=== PATIENT | female | born 1965 | race Hispanic/Latino ===

== ENCOUNTER 2024-03-13 00:42 | Emergency (ER) | payer OTHER ==
--- OUTSIDE RECORDS SUMMARY | 2024-03-13 00:47 | XMS REPORT | Continuity of Care Document ---
Author Name Unknown Address [address] [facility] [address] [place] [address] [facility] Address [address] [facility] [address] [place] [address] Care Team Providers Care Admiralty Lawyer Name Role Phone PCP, PATIENT DOES NOT HAVE A Primary Care Physic zeeshan Unavailable BK DREW Attending Clinician Unavailable LAB90 Attending Clinician Unavailable KWAME BALL Attending Clinician Unavailable VIDYA LYLE Attending Clinician Unavailable TONI HANNAH Attending Clinician Unavailable NADJA JAUREGUI Attending Clinician Unava REMY Giron Attending Clinician Unavailable REGAN ROSE Attending Clinician Unavailable ANETTE WALDROP Attending Clinician Unavailab stewart BLOUNT, ELROY Attending Clinician Unavailable EDGAR MACIAS Attending Clinician Unavailable Adriel MITCHELL, Nadja Mcdowell Attending Clinician [phone] BHARGAV ELMORE Attending Clinician UnavailJUANI Cabrales Attending Clinician Unavail able Lab, Adc Fam Pob I Attending Clinician Unavailab Anette Tinoco Attending Clinician [phone] Kitty Friedman Attending Clinician [phone] KITTY KIMBLE Attending Clinician Unavailable Scotty Rendon Attending Clinician + [phone] SCOTTY MARIANO Attending Clinician Unavailab ANETTE Cruz Attending Clinician Unavailable Doctor Unassigned, [place] Attending Clinician U navailable Payers Payer Name Policy Type Policy Number Effective Date Expirati on Date Source WEN 2 [id number] 2020 00:00:00 [employer] [id number] 2018 00:00:00 Problems Condition Name Condition Details Condition Category Status Onset Date Resolution Date Last Treatment Date Treating Clinician Comments Source Diverticul itis of colon with perforatio n Diverticul itis of colon with perforatio n Disease Active 03-10 00:00: 00 Yanet Seybold - Externa l History of kidney stones History of kidney stones Disease Active 2022-02 00:00: 00 Yanet Seybold - Externa l Elevated BP without diagnosis of hypertensi on Elevated BP without diagnosis of hypertensi on Disease Active 2022-02 00:00: 00 Yanet Seybold - Externa l Primary hypertensi on Primary hypertensi on Disease Active 2021-02 00:00: 00 Yanet Seybold - Externa l Non-recurr ent acute suppurativ e otitis media of right ear without spontaneou s rupture of tympanic membrane Non-recurr ent acute suppurativ e otitis media of right ear without spontaneou s rupture of tympanic membrane Disease Active 2021-02 00:00: 00 Yanet Seybold - Externa l Acute pharyngiti s due to other specified organisms Acute pharyngiti s due to other specified organisms Disease Active 2021-02 0- 00:00: 00 Yanet Seybold - Externa l Plantar warts Plantar warts Disease Active 2021-02 0-05 00:00: 00 Yanet Seybold - Externa l Mixed hyperlipid emia Mixed hyperlipid emia Disease Active 2021-02 0- 00:00: 00 Yanet Seybold - Externa l Hyperlipid emia Hyperlipid emia Disease Active 2021-02 0- 00:00: 00 Yanet Seybold - Externa l Prediabete s Prediabete s Disease Active 6- 00:00: 00 Yanet Seybold - Externa l Allergies, Adverse Reactions, Alerts Allergy Name Allergy Type Status Severity Reaction(s) Onset Date Inactive Date Treating Clinician Comments Source Sulfamet hoxazole W-Trimet hoprim Propensi ty to adverse reaction s Active 10-13 00:00: 00 Other Reaction( s): Unknown Yanet Seybold - Externa l Azithrom ycin Propensi ty to adverse reaction s Active Other 10-22 00:00: 00 Stomach cramps Yanet Seybold - Externa l Sulfamet hoxazole -Trimeth oprim Propensi ty to adverse reaction s Active Nausea and Vomiting 10-22 00:00: 00 Yanet Seybold - Externa l Bacampic illin Propensi ty to adverse reaction s Active Rash 06-09 00:00: 00 Yanet Seybold - Externa l Acetamin ophen Propensi ty to adverse reaction s Active 1998-02 00:00: 00 Yanet Seybold - Externa l Hydrocod one Propensi ty to adverse reaction s Active 1998-02 00:00: 00 Yanet Seybold - Externa l Metoclop ramide Propensi ty to adverse reaction s Active 1998-02 00:00: 00 Ynaet Seybold - Externa l Acetamin ophen Propensi ty to adverse reaction s Active 1998-02 00:00: 00 Yanet Seybold - Externa l Acetamin ophen Injectio n Propensi ty to adverse reaction s Active 1998-02 00:00: 00 Yanet Seybold - Externa l Metoclop ramide Propensi ty to adverse reaction s Active 1998-02 00:00: 00 Yanet Seybold - Externa l hydrocod one DA Active U 1998-02 00:00: 00 [facility] acetamin ophen DA Active U 1998-02 00:00: 00 [facility] metoclop ramide DA Active U 1998-02 00:00: 00 [facility] Not Converte d 316. See Text. DA Active U 1998-02 00:00: 00 [facility] NO KNOWN ALLERGIE S Drug Class Active [facility] Social History Social Habit Start Date Stop Date Quantity Comments Source ASSERTION Not Yanet Acosta - External Gender identity Nelsy bunn Dave - External Sexual orientation Bertha barragan Dave - External Exposure to SARS-CoV-2 (event) Not sure [facility] Alcoholic beverage intake 2024-03-10 00:00:00 2024-03-10 00:00:00 Ex-drinker (finding) Yanet Acosta - External Tobacco use and exposure 2024-01-19 00:00:00 2024-01-19 00:00:00 Smokeless tobacco non-user Yanet Acosta - External History of Social function 2022-10-07 00:00:00 2022-10-07 00:00:00 Yanet Acosta - External Sex 2020-05-16 17:06:18 2020-05-16 17:06:18 Female (finding) Yanet Acosta - External Sex assigned at 1965 00:00:00 1965 00:00:00 Yanet Acosta - External Smoking Status Start Date Stop Date Source Unknown if ever smoked [facility] Never smoked tobacco Yanet Acosta - External Medications Ordered Medication Name Filled Medication Name Start Date Stop Date Current Medication? Ordering Clinician Indication Dosage Frequency Signature (SIG) Comments Components Source Triamcinolo ne Acetonide 0.1 % apply externally Cream 03-10 00:00: 00 04-08 05:59 :00 Yes [id number] Apply to rash BID. Yanet rowland Terbinafine HCl 250 MG oral Tablet 03-02 00:00: 00 04-02 05:59 :00 Yes [id number] 250mg QD Take 1 tablet (250 mg total) by mouth daily. Yanet rowland Amoxicillin -Pot Clavulanate 875-125 MG oral Tablet 2023-02- 00:00: 00 Yes [id number] 1{tbl} Q.5D Take 1 tablet by mouth 2 times daily. Yanet rowland Multiple Vitamin (MULTI VITAMIN DAILY OR) 2023-02 2 10:20: 10 Yes , Yanet rowland Multiple Vitamin (MULTI VITAMIN DAILY OR) 2023-02 2 10:55: 09 Yes , Yanet rowlnad Ofloxacin 0.3 % otic Solution 2023-02 00:00: 00 Yes [id number] 3[drp] Q.5D Place 3 drops into the right ear 2 times daily. Yanet rowland Neomycin-Po lymyxin-Dex ameth 3.5-03082-9 .1 ophthalmic Suspension 2023-02- 00:00: 00 Yes Yanet rowland Mupirocin (BACTROBAN) 2 % apply externally Ointment 11-05 00:00: 00 01-18 00:00 :00 No [id number] 1{appli cation} Q.5D Apply 1 Applicatio n topically 2 times daily as needed. Yanet rowland Multiple Vitamin (MULTI VITAMIN DAILY OR) 10-13 13:58: 30 Yes , Yanet rowland LISINOPRIL- HCTZ 10-12.5 MG oral Tablet 10-13 00:00: 00 Yes [id number] 1{tbl} QD Take 1 tablet by mouth daily. Yanet rowland Ofloxacin 0.3 % otic Solution 10-13 00:00: 00 01-18 00:00 :00 No [id number] 14355 3[drp] Q.5D Place 3 drops into the right ear 2 times daily. Yanet rowland Cefdinir 300 MG oral Capsule 06-18 00:00: 00 10-13 00:00 :00 No [id number] 300mg Q.5D Take 1 capsule (300 mg total) by mouth 2 times daily. Yanet rowland levoFLOXaci n 500 MG oral Tablet 06-07 00:00: 00 10-13 00:00 :00 No 500mg QD Take 1 tablet (500 mg total) by mouth daily. Yanet rowland Doxycycline Hyclate 100 MG oral Tablet 05-21 00:00: 10-13 00:00 :00 No [id number] 9102 100mg Q.5D Take 1 tablet (100 mg total) by mouth 2 times daily. Yanet rowland Benzonatate (Tessalon Perles) 100 MG oral Capsule 05-14 00:00: 00 10-13 00:00 :00 No [id number] 100mg [id number] 3D Take 1 capsule (100 mg total) by mouth 3 times daily as needed for cough. Yanet rowland guaiFENesin -Codeine 100-10 MG/5ML oral Syrup 05-14 00:00: 00 10-13 00:00 :00 No [id number] 5mL Q4H Take 5 mL by mouth every 4 to 6 hours as needed for cough. Yanet rowland Terbinafine HCl 250 MG oral Tablet 05-05 00:00: 00 05-21 00:00 :00 No [id number] 250mg Take 1 tablet (250 mg total) by mouth daily. Yanet rowland LISINOPRIL- HCTZ 10-12.5 MG oral Tablet 2-12 00:00: 00 10-13 00:00 :00 No [id number] 1{tbl} QD Take 1 tablet by mouth daily. Yanet rowland Ofloxacin 0.3 % otic Solution 03-12 00:00: 00 Yes [id number] 5[drp] Place 5 drops into the right ear 2 times daily. Yanet rowland Amoxicillin -Pot Clavulanate 875-125 MG oral Tablet -24 00:00: 00 Yes [id number] 1{tbl} Take 1 tablet by mouth 2 times daily. Yanet rowland LISINOPRIL- HCTZ 10-12.5 MG oral Tablet 2022-02 10:19: 37 01-15 00:00 :00 No 1{tbl} Take 1 tablet by mouth daily. Yanet rowland LISINOPRIL- HCTZ 10-12.5 MG oral Tablet 2022-02 00:00: 00 Yes [id number] 1{tbl} Take 1 tablet by mouth daily. Yanet rowland Albuterol HFA 108 (90 Base) MCG/ACT IN AERS 2022-02 00:00: 00 05-21 00:00 :00 No [id number] 2{puff} Q.25D Inhale 2 puffs into the lungs every 6 hours as needed for wheezing. Yanet rowland Semaglutide -Weight Management (Wegovy) 0.25 MG/0.5ML subcutaneou s Solution Auto-inject or 2022-02 00:00: 00 Yes [id number] .25mg Inject 0.25 mg into the skin once a week. Yanet rowland Nitrofurant oin Monohyd Macro (Macrobid) 100 MG oral Capsule 10-21 00:00: 00 01-03 00:00 :00 No [id number] 100mg Take 1 capsule (100 mg total) by mouth 2 times daily. Yanet rowland Terbinafine HCl 250 MG oral Tablet 09-10 00:00: 00 10-07 00:00 :00 No [id number] 250mg Take 1 tablet (250 mg total) by mouth daily Yanet rowland Amoxicillin -Pot Clavulanate 875-125 MG oral Tablet 08-13 00:00: 00 10-06 00:00 :00 No [id number] 1{tbl} Take 1 tablet by mouth 2 times daily for 7 days Yanet rowland Ofloxacin 0.3 % otic Solution 08-13 00:00: 00 08-21 04:59 :00 No [id number] 5[drp] Place 5 drops into the right ear 2 times daily for 7 days Yanet rowland Cefdinir 300 MG oral Capsule 2021-02 00:00: 00 10-06 00:00 :00 No [id number] 300mg Take 1 capsule (300 mg total) by mouth 2 times daily Yaent rowland Amoxicillin -Pot Clavulanate 875-125 MG oral Tablet 2021-02 0-05 00:00: 00 Yes [id number] 1{tbl} Take 1 tablet by mouth 2 times daily Yanet rowland Ciprofloxac in-Dexameth asone 0.3-0.1 % otic Suspension 08-07 00:00: 00 Yes [id number] 3[drp] Place 3 drops into the right ear in the morning and 3 drops in the evening. Yanet rowland Alprazolam 0.5 MG oral Tablet 08-07 00:00: 00 Yes [id number] .5mg [id number] 3D Take 1 tablet (0.5 mg total) by mouth 3 times daily as needed for sleep or anxiety Yanet rowland Cefdinir 300 MG oral Capsule 08-07 00:00: 00 11-21 00:00 :00 No [id number] 300mg Take 1 capsule (300 mg total) by mouth in the morning and 1 capsule (300 mg total) in the evening. Yanet rowland LISINOPRIL- HCTZ 10-12.5 MG oral Tablet 8 00:00: 00 Yes [id number] 1{tbl} Take 1 tablet by mouth daily Yanet rowland Ketorolac Tromethamin e 10 MG oral Tablet - 00:00: 00 Yes Yanet rowland Fluconazole 150 MG oral Tablet 7- 00:00: 00 09-10 00:00 :00 No Yanet rowland Imiquimod 5 % apply externally Cream 5- 00:00: 00 10-07 00:00 :00 No [id number] Apply at night 3 times per week Yanet rowland Immunizations Ordered Immunization Name Filled Immunization Name Date Status Comments Source Tdap- (Boostrix, Adacel) Unknown Completed Yanet Traore External Tdap- (Boostrix, Adacel) Unknown Completed Yanet Seybold - External Tdap- (Boostrix, Adacel) Unknown Completed Yanet Seybold - External Tdap- (Boostrix, Adacel) Unknown Completed Yanet Seybold - External Tdap- (Boostrix, Adacel) Unknown Completed Yanet Seybold - External Vital Signs Vital Name Observation Time Observation Value Comments S deanna Systolic blood pressure 2024-01-19 16:52:00 138 mm[Hg] Yanet Seybo ld - External Diastolic blood pressure 2024-01-19 16:52:00 70 mm[Hg] Yanet Seybo ld - External Heart rate 2024-01-19 16:52:00 82 /min Kelse y Seybold - External Body temperature 2024-01-19 16:52:00 36.78 Karen Yanet Seybold - External Respiratory rate 2024-01-19 16:52:00 14 /min Yanet Seybold - External Body height 2024-01-19 16:52:00 154.9 cm Nelsy ey Seybold - External Body weight 2024-01-19 16:52:00 61.145 kg Nelsy ey Seybold - External BMI 2024-01-19 16:52:00 25.47 kg/m2 Nelsy ey Seybold - External Systolic blood pressure 2023-10-14 18:54:00 110 mm[Hg] Yanet Seybo ld - External Diastolic blood pressure 2023-10-14 18:54:00 58 mm[Hg] Yanet Seybo ld - External Heart rate 2023-10-14 18:54:00 69 /min Kelse y Seybold - External Body temperature 2023-10-14 18:54:00 36.06 Karen Yanet Seybold - External Respiratory rate 2023-10-14 18:54:00 15 /min Yanet Seybold - External Body height 2023-10-14 18:54:00 154.9 cm Nelsy ey Seybold - External Body weight 2023-10-14 18:54:00 62.596 kg Nelsy ey Seybold - External BMI 2023-10-14 18:54:00 26.07 kg/m2 Nelsy ey Seybold - External Systolic blood pressure 2023-01-15 15:59:00 130 mm[Hg] Yanet Seybo ld - External Diastolic blood pressure 2023-01-15 15:59:00 64 mm[Hg] Yanet Seybo ld - External Heart rate 2023-01-15 15:59:00 74 /min Kelse y Seybold - External Body temperature 2023-01-15 15:59:00 36.17 Karen Yanet Seybold - External Respiratory rate 2023-01-15 15:59:00 14 /min Yanet Seybold - External Body height 2023-01-15 15:59:00 154.9 cm Nelsy ey Seybold - External Body weight 2023-01-15 15:59:00 59.875 kg Nelsy ey Seybold - External BMI 2023-01-15 15:59:00 24.94 kg/m2 Nelsy ey Seybold - External Systolic blood pressure 2023-01-03 14:05:00 156 mm[Hg] Yanet Seybo ld - External Diastolic blood pressure 2023-01-03 14:05:00 74 mm[Hg] Yanet Seybo ld - External Heart rate 2023-01-03 14:05:00 73 /min Kelse y Seybold - External Body temperature 2023-01-03 14:05:00 36.94 Karen Yanet Seybold - External Respiratory rate 2023-01-03 14:05:00 16 /min Yanet Seybold - External Body height 2023-01-03 14:05:00 154.9 cm Nelsy ey Seybold - External Body weight 2023-01-03 14:05:00 61.689 kg Nelsy ey Seybold - External BMI 2023-01-03 14:05:00 25.70 kg/m2 Nelsy ey Seybold - External Oxygen saturation in Arterial blood by Pulse oximetry 2023-01-03 14:05:00 97 /min Yanet Seybo ld - External Systolic blood pressure 2022-10-07 13:04:00 130 mm[Hg] Yanet Seybo ld - External Diastolic blood pressure 2022-10-07 13:04:00 74 mm[Hg] Yanet Seybo ld - External Heart rate 2022-10-07 13:04:00 72 /min Kelse y Seybold - External Body temperature 2022-10-07 13:04:00 36.17 Karen Yanet Seybold - External Respiratory rate 2022-10-07 13:04:00 16 /min Yanet Seybold - External Body height 2022-10-07 13:04:00 154.9 cm Nelsy ey Seybold - External Body weight 2022-10-07 13:04:00 61.689 kg Nelsy ey Seybold - External BMI 2022-10-07 13:04:00 25.70 kg/m2 Nelsy ey Seybold - External Oxygen saturation in Arterial blood by Pulse oximetry 2022-10-07 13:04:00 97 /min Yanet Seybo ld - External Body height 2022-09-10 19:51:00 154.9 cm Nelsy ey Seybold - External Body weight 2022-09-10 19:51:00 62.143 kg Nelsy ey Seybold - External BMI 2022-09-10 19:51:00 25.89 kg/m2 Nelsy ey Seybold - External Oxygen saturation in Arterial blood by Pulse oximetry 2022-09-10 19:51:00 94 /min Yanet Seybo ld - External Systolic blood pressure 2022-09-10 19:51:00 126 mm[Hg] Yanet Seybo ld - External Diastolic blood pressure 2022-09-10 19:51:00 60 mm[Hg] Yanet Seybo ld - External Heart rate 2022-09-10 19:51:00 67 /min Kelse y Seybold - External Body temperature 2022-09-10 19:51:00 36.61 Karen Yanet Seybold - External Respiratory rate 2022-09-10 19:51:00 16 /min Yanet Seybold - External Systolic blood pressure 2022-01-11 21:16:00 134 mm[Hg] Yanet Seybo ld - External Diastolic blood pressure 2022-01-11 21:16:00 76 mm[Hg] Yanet Seybo ld - External Heart rate 2022-01-11 21:16:00 77 /min Kelse y Seybold - External Body temperature 2022-01-11 21:16:00 36.56 Karen Yanet Seybold - External Respiratory rate 2022-01-11 21:16:00 14 /min Yanet Seybold - External Body height 2022-01-11 21:16:00 154.9 cm Nelsy ey Seybold - External Body weight 2022-01-11 21:16:00 62.596 kg Nelsy ey Seybold - External BMI 2022-01-11 21:16:00 26.07 kg/m2 Nelsy ey Seybold - External Oxygen saturation in Arterial blood by Pulse oximetry 2022-01-11 21:16:00 99 /min Yanet Seybo ld - External Systolic blood pressure 2021-11-21 14:12:00 130 mm[Hg] Yanet Seybo ld - External Diastolic blood pressure 2021-11-21 14:12:00 72 mm[Hg] Yanet Velozybo ld - External Heart rate 2021-11-21 14:12:00 70 /min Sanjuana y Seybold - External Body temperature 2021-11-21 14:12:00 36.67 Karen Yanet Seybold - External Respiratory rate 2021-11-21 14:12:00 14 /min Yanet Seybold - External Body height 2021-11-21 14:12:00 154.9 cm Nelsy ey Seybold - External Body weight 2021-11-21 14:12:00 62.143 kg Nelsy ey Seybold - External BMI 2021-11-21 14:12:00 25.89 kg/m2 Nelsy ey Seybold - External Encounters Start Date/Time End Date/Time Encounter Type Admission Type Attending [facility] Care Department Encounter ID Source 2024-03-10 09:00:00 2024-03-10 09:00:00 Outpatient BK DREW [id number] Yanet Acosta 2024-03-05 00:00:00 2024-03-05 00:00:00 Outpatient BK DREW [id number] Yanet Acosta 2024-03-02 00:00:00 2024-03-02 00:00:00 Outpatient BK DREW [id number] Yanet Acosta 2024-02-03 00:00:00 2024-02-03 00:00:00 Outpatient BK DREW [id number] Yanet Acosta 2024-01-29 08:15:00 2024-01-29 08:15:00 Outpatient LAB90 YANET SOSA [id number] Yanet Seybold 2024-01-28 00:00:00 2024-01-28 00:00:00 Outpatient BK DREW YANET SOSA [id number] Yanet Seybold 2024-01-23 09:35:00 2024-01-23 09:35:00 Outpatient LAB90 YANET SOSA [id number] Yanet Seybold 2024-01-22 00:00:00 2024-01-22 00:00:00 Outpatient HUNDTrevor, BK YANET SOSA [id number] Yanet Seybold 2024-01-19 11:45:00 2024-01-19 11:45:00 Outpatient LAB90 YANET SOSA [id number] Yanet Seybold 2024-01-19 11:00:00 2024-01-19 11:00:00 Outpatient HUNDTrevor, BK SOSA [id number] Yanet Seybold 2024-01-07 19:45:00 2024-01-07 19:45:00 Outpatient LIZZYKWAME HENDERSON YANET SOSA [id number] Yanet Seybold 2023-11-26 08:00:00 2023-11-26 08:00:00 Outpatient VIKI, BK YANET SOSA [id number] Yanet Seybold 2023-11-21 09:00:00 2023-11-21 09:00:00 Outpatient VIKI BK SOSA [id number] Yanet Seybold 2023-11-06 19:00:00 2023-11-06 19:00:00 Outpatient LYLEVIDYA BYRNES YANET SOSA [id number] Yanet Seybold 2023-11-04 00:00:00 2023-11-04 00:00:00 Outpatient VIKI BK SOSA [id number] Yanet Seybold 2023-10-22 00:00:00 2023-10-22 00:00:00 Outpatient VIKI BK SOSA [id number] Yanet Seybold 2023-10-14 14:45:00 2023-10-14 14:45:00 Outpatient LAB90 YANET SOSA [id number] Yanet Seybold 2023-10-14 14:00:00 2023-10-14 14:00:00 Outpatient BK DREW YANET [id number] Yanet Seybold 2023-09-12 14:55:00 2023-09-12 14:55:00 Outpatient LAB90 YANET YANET [id number] Yanet Seybold 2023-09-12 00:00:00 2023-09-12 00:00:00 Outpatient BK DREW YANET [id number] Yanet Seybold 2023-09-11 00:00:00 2023-09-11 00:00:00 Outpatient BK DREW [facility]ANTE SOSA [id number] [facility] 2023-08-27 00:00:00 2023-08-27 00:00:00 Outpatient PRETONI CRUZ YANET SOSA [id number] Yanet Seybold 2023-06-19 00:00:00 2023-06-19 00:00:00 Outpatient TONI HANNAH YANET SOSA [id number] Yanet Seybold 2023-06-13 14:55:00 2023-06-13 14:55:00 Outpatient LABRenee YANET SOSA [id number] Yanet Seybold 2023-06-13 00:00:00 2023-06-13 00:00:00 Outpatient NADJA JAUREGUI [id number] Yanet Seybold 2023-06-13 00:00:00 2023-06-13 00:00:00 Outpatient TONI HANNAH YANET SOSA [id number] Yanet Seybold 2023-05-23 16:30:00 2023-05-23 16:30:00 Outpatient TONI HANNAH YANET SOSA [id number] Yanet Seybold 2023-05-22 15:15:00 2023-05-22 15:15:00 Outpatient REMY WADDELL [id number] Yanet Seybold 2023-05-22 00:00:00 2023-05-22 00:00:00 Outpatient NADJA JAUREGUI [id number] Yanet Seybold 2023-05-15 00:00:00 2023-05-15 00:00:00 Outpatient HUNDTrevor, BK YANET SOSA [id number] Yanet Seybold 2023-05-06 00:00:00 2023-05-06 00:00:00 Outpatient HUNDL, BK SOSA [id number] Yanet Seybshoaib 2023-05-05 09:10:00 2023-05-05 09:10:00 Outpatient LAB90 YANET SOSA [id number] Yanet Seybold 2023-04-14 00:00:00 2023-04-14 00:00:00 Outpatient HUNDTrevor, BK YANET SOSA [id number] Yanet Seybshoaib 2023-03-31 00:00:00 2023-03-31 00:00:00 Outpatient HUNDL, BK SOSA [id number] [facility] 2023-03-12 17:15:00 2023-03-12 17:15:00 Outpatient REGAN ROSE YANET SOSA [id number] [facility] 2023-01-31 13:30:00 2023-01-31 13:30:00 Outpatient HUNDL, BK YANET SOSA [id number] Yanet Seybold 2023-01-21 00:00:00 2023-01-21 00:00:00 Outpatient HUNDL, BK SOSA [id number] Yanet Seybold 2023-01-15 10:45:00 2023-01-15 10:45:00 Outpatient LAB90 YANET SOSA [id number] Yanet Seybold 2023-01-15 10:00:00 2023-01-15 10:00:00 Outpatient HUNDL, BK YANET SOSA [id number] Aynet Seybold 2023-01-06 00:00:00 2023-01-06 00:00:00 Outpatient NADJA JAUREGUI [id number] Yanet Seybold 2023-01-04 00:00:00 2023-01-04 00:00:00 Outpatient HUNDL, BK SOSA [id number] Yanet Seybold 2023-01-03 08:45:00 2023-01-03 08:45:00 Outpatient LAB90 YANET SOSA [id number] Yanet Seybold 2023-01-03 08:00:00 2023-01-03 08:00:00 Outpatient HUNDL, BK SOSA [id number] Yanet Seybold 2023-01-03 00:00:00 2023-01-03 00:00:00 Outpatient HUNDL, BK SOSA [id number] Yanet Seybold 2023-01-02 00:00:00 2023-01-02 00:00:00 Outpatient HUNDL, BK SOSA [id number] Yanet Seybold 2022-12-31 00:00:00 2022-12-31 00:00:00 Outpatient HUNDTrevor, BK SOSA [id number] Yanet Seybold 2022-12-27 00:00:00 2022-12-27 00:00:00 Outpatient ANETTE WALDROP [id number] Yanet Seybold 2022-12-26 16:00:00 2022-12-26 16:00:00 Outpatient LAB90 YANET SOSA [id number] Yanet Seybold 2022-12-26 00:00:00 2022-12-26 00:00:00 Outpatient NADJA JAUREGUI [id number] Yanet Seybold 2022-12-05 10:00:00 2022-12-05 10:00:00 Outpatient JOSE ALEJANDRO, ELROYTHOMAS SOSA [id number] Yanet Seybold 2022-10-18 00:00:00 2022-10-18 00:00:00 Outpatient NADAJ JAUREGUI [id number] Yanet Seybold 2022-10-11 00:00:00 2022-10-11 00:00:00 Outpatient VIKI, BK SOSA [id number] Yanet Seybold 2022-10-07 08:45:00 2022-10-07 08:45:00 Outpatient LAB90 YANET OSSA [id number] Yanet Seybold 2022-10-07 08:00:00 2022-10-07 08:00:00 Outpatient BK DREW YANET [id number] Yanet Acosta 2022-10-04 08:20:00 2022-10-04 08:20:00 Outpatient TOÑO SOSA YANET [id number] Yanet Acosta 2022-09-10 15:00:00 2022-09-10 15:00:00 Outpatient BK DREW YANET SOSA [id number] Yanet Acosta 2022-08-13 07:30:00 2022-08-13 07:30:00 Outpatient EDGAR MACIAS YANET YANET [id number] Yanet Acosta 2022-03-25 00:00:00 2022-03-25 00:00:00 Outpatient BK DREW YANET SOSA [id number] Yanet Acosta 2022-02-21 00:00:00 2022-02-21 00:00:00 Outpatient BK DREW YANET SOSA [id number] [facility] 2022-01-11 15:00:00 2022-01-11 15:00:00 Outpatient VIKI, BK YANET SOSA [id number] Yanet Acosta 2021-11-21 09:15:00 2021-11-21 09:15:00 Outpatient TONI HANNAH YANET SOSA [id number] [facility] 2021-10-30 00:00:00 2021-10-30 00:00:00 Outpatient BRIELLE TONI YANET SOSA [id number] [facility] 2021-08-08 00:00:00 2021-08-08 00:00:00 Outpatient NADJA [facility]UREGUI [id number] [facility] 2021-08-07 16:15:00 2021-08-07 16:30:00 Office Visit Nadja Jauregui [place] [id number] [facility] 2021-08-07 14:15:00 2021-08-07 14:15:00 Outpatient NADJA JAUREGUI [id number] [facility] 2021-08-06 00:00:00 2021-08-06 00:00:00 Outpatient NADJA JAUREGUI [id number] [facility] 2021-08-01 15:30:00 2021-08-01 15:30:00 Outpatient BHARGAV MESA [facility] [id number] [facility] 2021-07-12 16:00:00 2021-07-12 16:00:00 Outpatient BRIELLE TONI [facility] [id number] [facility] 2021-07-12 00:00:00 2021-07-12 00:00:00 Outpatient NADJA JAUREGUI [id number] [facility] 2020-11-10 07:55:00 2020-11-10 07:55:00 Outpatient TOÑO YANET SOSA [id number] [facility] 2020-10-05 12:10:00 2020-10-05 12:06:44 Outpatient JUANI GUZMAN [facility] [id number] [facility] 2020-10-04 11:00:00 2020-10-04 11:00:00 Outpatient NADJA JAUREGUI [id number] [facility] 2020-09-15 11:00:00 2020-09-15 11:00:00 Outpatient JUANI GUZMAN [facility] [id number] [facility] 2020-09-15 08:20:00 2020-09-15 08:20:00 Outpatient JUANI GUZMAN [facility] [id number] [facility] 2020-09-15 08:20:00 2020-09-15 08:20:00 Outpatient JUANI GUZMAN [facility] [id number] [facility] 2020-09-14 17:00:00 2020-09-14 16:59:14 Outpatient JUANI GUZMAN [facility] [id number] [facility] 2020-08-24 00:00:00 2020-08-24 00:00:00 Outpatient NADJA JAUREGUI [id number] Yanet Acosta 2020-03-31 14:01:42 2020-03-31 14:21:42 Laboratory Only Lab, [facility] Ant Pob Sary Anette Cannon [facility] [address] 1.840.114 350.1.13.10 [id number] [id number] [facility] 2020-03-31 14:00:00 2020-03-31 14:00:00 Outpatient R [facility] [id number] [facility] 2020-03-25 13:00:38 2020-03-25 13:20:38 Laboratory Only Lab, [facility] 1.840.114 350.1.13.10 [id number] [id number] [facility] 2020-03-25 13:00:00 2020-03-25 13:00:00 Outpatient R [facility] [id number] [facility] 2020-03-12 11:44:37 2020-03-12 12:04:37 Laboratory Only Lab, [facility] .840.114 350.1.13.10 4.2.7.2.686 [id number] 2020-03-12 11:44:37 2020-03-12 12:04:37 [facility] .840.114 350.1.13.10 4.2.7.2.686 [id number] [facility] 2020-03-12 11:40:00 2020-03-12 11:40:00 [facility] [id number] [facility] 2020-03-04 16:42:59 2020-03-04 17:02:59 Laboratory Only Lab, [facility] Pob I [facility] [address] 1.0.114 350.1.13.10 4.2.7.2.686 [id number] 2020-03-04 16:42:59 2020-03-04 17:02:59 Laboratory Only Lab, [facility] Pob I Scotty Mariano [facility] [address] 1.0.114 350.1.13.10 4.2.7.2.686 [id number] [facility] 2020-03-04 16:40:00 2020-03-04 16:40:00 Outpatient R SCOTTY MARIANO [facility] [id number] [facility] 2019-09-23 11:02:18 2019-09-23 11:22:18 Laboratory Only Lab, [facility] [address] 1.0.114 350.1.13.10 4.2.7.2.686 [id number] 2019-09-23 11:02:18 2019-09-23 11:22:18 [facility] Only [facility], [facility] An[facility] Leonardo [facility] [address] 1.0.114 350.1.13.10 4.2.7.2.686 [id number] [facility] 2019-09-23 11:00:00 2019-09-23 11:00:00 Outpatient R ANETTE CANNON [facility] [id number] [facility] 2019-09-23 00:00:00 2019-09-23 00:00:00 Letter (Out) Doctor Unassigned, [place] [facility] 1.20.114 350.1.13.10 4.2.7.2.686 [id number] 2019-09-23 00:00:00 2019-09-23 00:00:00 Letter (Out) Doctor Unassigned, [place] [facility] [id number] 350.1.13.10 4.2.7.2.686 [id number] [facility]
[2024-03-13] MEDS ORDERED: NA CHLORIDE 0.9% 1,000 ML ONE (01:15)
[2024-03-13 01:35] LABS: Absolute Basophils 0.1 K/uL (0-0.5); Absolute Eosinophils 0.2 K/uL (0-0.5); Absolute Lymphocytes (CBC) 1.9 K/uL (0.7-4.9); Absolute Monocytes 0.7 K/uL (0.1-1.3); Absolute Neutrophil 6.5 K/uL (1.8-8.0); Basophils % 0.6 % (0-1.3); Eosinophils % 2.5 % (0-4.4); Hematocrit 40.3 % (36.0-45.0); Hemoglobin 13.5 g/dL (12.0-15.0); Lymphocytes % 20.6 % (15.3-44.8); MCH 29.7 pg (27.0-35.0); MCHC 33.4 g/dL (32.0-36.0); MCV 88.8 fL (80-100); MPV 7.6 fL (7.6-11.3); Monocytes % 7.3 % (3.3-12.3); Platelets 479 thou/uL (152-406); RBC Red Blood Cell Count 4.54 M/uL (3.86-4.86); Red Cell Distribution Width 13.5 % (12.1-15.2)
[2024-03-13 01:52] LABS: Albumin 3.8 g/dL (3.4-5.0); Anion Gap 11.2 mEq/L (5.0-15.0); Bilirubin Total 0.4 mg/dL (0.2-1.0); Globulin 3.9 g/dL (2.3-3.5); Potassium 3.2 mEq/L (3.5-5.1); Protein, Total 7.7 g/dL (6.4-8.2)
[2024-03-13 01:57] LABS: Sqamous Epithelial <5 /HPF (None Seen); Urine Bacteria None Seen /HPF (<20); Urine Bilirubin NEGATIVE (Negative); Urine Blood 1+ (Negative); Urine Clarity Clear (Clear); Urine Color Light-Yellow (Yellow); Urine Culture Reflex Order NOT NEEDED; Urine Glucose NEGATIVE (Negative); Urine Ketones 1+ (Negative); Urine Microscopic Reflex YN ORDER UMIC; Urine Nitrite NEGATIVE (Negative); Urine Protein NEGATIVE (Negative); Urine Urobilinogen Normal (Normal); Urine WBC <5 /HPF (<5); Urine pH 6.5 (5.0-7.0)
[2024-03-13] MEDS ORDERED: POTASSIUM 25 MEQ EFFERV TAB ONE (02:26)
[2024-03-13] MEDS ORDERED: KETOROLAC 30 MG/ML INJ ONE (02:26)
--- NOTE | 2024-03-13 04:38 | EDPHYS ---
Physician Documentation [facility] Name: Merced Guardado Age: 58 yrs Sex: Female : 1965 Arrival Date: 03/13/2024 Time: 00:42 Bed 14 Private MD: ED Physician Zeeshan North HPI: 03/13 01:02 This 58 yrs old Female presents to ER via Ambulatory with complaints of Rectal cp Bleeding. 01:02 The patient presents to the emergency department with noticed blood when wiping and cp after bowel movement today. 01:05 Patient reports being diagnosed with diverticulitis after being seen at [facility] this past cp Friday. Currently taking prescribed Ciprofloxacin and Metronidazole antibiotics. Patient reports LLQ abdomen pain improved but having lower mid abdomen pain, burning in stomach and urinary frequency and noticed very small amount red blood when wiping after using restroom today. Historical: - Allergies: 01:00 No Known Allergies; ha1 - PMHx: 01:00 Diverticulitis; Hypertensive disorder; ha1 - Immunization history:: Adult Immunizations up to date. - Infectious Disease History:: Denies. - Social history:: Smoking status: Patient denies any tobacco usage or history of. ROS: 01:05 Constitutional: Negative for body aches, chills, fever, cp 01:05 Eyes: Negative for injury, pain, redness, and discharge, cp 01:05 ENT: Negative for drainage from ear(s), ear pain, sore throat, difficulty swallowing, difficulty handling secretions, 01:05 Cardiovascular: Negative for chest pain, palpitations, 01:05 Respiratory: Negative for cough, shortness of breath, wheezing, 01:05 Abdomen/GI: Positive for abdominal pain, rectal bleeding, Negative for vomiting, diarrhea, constipation, 01:05 Back: Negative for pain at rest, pain with movement, 01:05 Neuro: Negative for altered mental status, dizziness, headache, weakness, 01:05 All other systems are negative, Exam: 01:10 Constitutional: The patient appears in no acute distress, alert, awake, cp non-diaphoretic, non-toxic, well developed, well nourished, 01:10 Head/Face: Normocephalic, atraumatic. cp 01:10 Eyes: Periorbital structures: appear normal, Conjunctiva: normal, no exudate, no injection, Sclera: no appreciated abnormality, Lids and lashes: appear normal, bilaterally, 01:10 ENT: External ear(s): are unremarkable, Nose: is normal, Mouth: Lips: moist, Oral mucosa: moist, Posterior pharynx: Airway: no evidence of obstruction, patent, 01:10 Chest/axilla: Inspection: normal, 01:10 Cardiovascular: Rate: normal, Rhythm: regular, Edema: is not appreciated, JVD: is not appreciated, 01:10 Respiratory: the patient does not display signs of respiratory distress, Respirations: normal, no use of accessory muscles, no retractions, labored breathing, is not present, Breath sounds: are clear throughout, no decreased breath sounds, no stridor, no wheezing, 01:10 Abdomen/GI: Inspection: abdomen appears normal, Bowel sounds: active, all quadrants, Palpation: soft, in all quadrants, mild abdominal tenderness, in the suprapubic area and left lower quadrant, rebound tenderness, is not appreciated, involuntary guarding, is not appreciated, 01:10 Back: pain, is absent, ROM is normal, 01:58 : Rectal exam: Stool: green, no gross blood, hemorrhoid(s), external, cp Vital Signs: 01:27 BP 163 / 85; Pulse 89; Resp 18; Temp 97.6; Pulse Ox 100% ; Weight 65.77 kg; Height 5 cp4 ft. 3 in. ; Pain 4/10; 02:42 BP 157 / 70; Pulse 75; Resp 18; Pulse Ox 98% ; cp4 04:07 BP 147 / 75; Pulse 73; Resp 18; Pulse Ox 98% ; cp4 01:27 Body Mass Index 25.69 (65.77 kg, 160.02 cm) cp4 01:27 Pain Scale: Adult cp4 MDM: 00:49 Medical Screening Exam initiated cp 01:30 Differential diagnosis: hemorrhoids, fissure, diverticular abscess, lower GI bleed, cp anemia. 04:36 Data reviewed: vital signs, nurses notes, lab test result(s), radiologic studies, CT cp scan, and as a result, I will discharge patient. 04:36 I considered the following discharge prescriptions or medication management in the emergency department Medications were administered in the Emergency Department. See MAR. Counseling: I had a detailed discussion with the patient and/or guardian regarding the historical points, exam findings, and any diagnostic results supporting the discharge/admit diagnosis, lab results, radiology results, the need for outpatient follow up, a batter out, to return to the emergency department if symptoms worsen or persist or if there are any questions or concerns that arise at home. Response to treatment: the patient's symptoms have markedly improved after treatment, and as a result, I will discharge patient. ED course: VSS. Reassurance. Will discharge to home for continued monitoring. Patient to continue prescribed antibiotics. 03/13 01:03 Order name: CBC with Diff; Complete Time: :57 cp 03/13 01:03 Order name: CMP; Complete Time: :57 cp 03/13 04:25 Interpretation: Normal except: NA 133; K 3.2; GLUC 117; AST 14; GLOB 3.9; A/G 1.0. cp 03/13 01:03 Order name: Lipase; Complete Time: :57 cp 03/13 01:03 Order name: Urinalysis w/ reflexes; Complete Time: : cp 03/13 04:25 Interpretation: Normal except: UKET 1+; UBLD 1+; URBC 5-10. cp 03/13 01:58 Order name: CT Abd/Pelvis - IV Contrast Only cp 03/13 01:03 Order name: IV Saline Lock; Complete Time: 01:13 cp 03/13 01:03 Order name: Labs collected and sent; Complete Time: 01:13 cp Administered Medications: 01:14 Drug: NS 0.9% IV 1000 ml IV at 1 bolus Per protocol; to be given as a bolus over 60 cp4 minutes Route: IV; Rate: 1 bolus; Site: right antecubital; 02:35 Follow up: Response: No adverse reaction; IV Status: Completed infusion cp4 02:34 Drug: Potassium PO Effervescent Tablet 50 mEq PO once; dissolve in 4 ounces of water or cp4 juice Route: PO; 04:46 Follow up: Response: No adverse reaction cp4 02:34 Drug: Ketorolac IVP 15 mg IVP once Route: IVP; Site: right antecubital; cp4 04:46 Follow up: Response: No adverse reaction cp4 Disposition Summary: 03/13/24 04:37 Discharge Ordered Notes: Location: Home cp Problem: an ongoing problem cp Symptoms: have improved cp Condition: Stable cp Diagnosis - Abdominal pain, unspecified - hx of diverticulitis cp - Hypokalemia cp Followup: cp - With: Private Physician - When: 2 - 3 days - Reason: Recheck today's complaints Discharge Instructions: - Discharge Summary Sheet cp - Abdominal Pain, Adult cp - Potassium Content of Foods cp - Diverticulitis cp - Hypokalemia cp Forms: - Medication Reconciliation Form cp - Antibiotic Education cp - Prescription Opioid Use cp - Patient Portal Instructions cp - Leadership Thank You Letter Prescriptions: - Potassium Chloride 10 mEq Oral capsule, extended release - take 1 tablet ORAL route every 12 hours for 5 days; 10 tablet; Refills: 0, cp Product Selection Permitted Addendum: 03/16/2024 14:15 Co-signature as Attending Physician, Zeeshan North MD I agree with the assessment and c negron plan of care. Signatures: Dispatcher [employer] EDZeeshan Peng MD MD cha Page, Corey, PA PA Susana Nguyen, RN RN ha1 Monique Bustamante cp4 Corrections: (The following items were deleted from the chart) 03/13 22:28 01:05 Patient reports being diagnosed with diverticulitis after being seen at [facility] this past Friday. Currently taking prescribed Ciprofloxacin and Metronidazole antibiotics. Patient reports LLQ abdomen pain improved but having lower mid abdomen pain, burning in stomach and urinary frequency. cp
--- NOTE | 2024-03-13 04:38 | ER ---
Nurse's Notes [facility] Name: Merced Guardado Age: 58 yrs Sex: Female : 1965 Arrival Date: 03/13/2024 Time: 00:42 Bed 14 Private MD: Diagnosis: Abdominal pain, unspecified-hx of diverticulitis;Hypokalemia Presentation: 03/13 00:48 Chief complaint: Patient states: got diagnosed with diverticulitis on Friday but to day ha1 I noticed that I still have bowel movements with small amount of blood. Mid epigastric pain. 00:48 Coronavirus screen: Client denies travel out of the [place] in the last 14 days. Ebola ha1 Screen: No symptoms or risks identified at this time. Initial Sepsis Screen: Does the patient meet any 2 criteria? No. Patient's initial sepsis screen is negative. Does the patient have a suspected source of infection? No. Patient's initial sepsis screen is negative. Risk Assessment: Do you want to hurt yourself or someone else? Patient reports no desire to harm self or others. Onset of symptoms was March 13, 2024. 00:48 Method Of Arrival: Ambulatory ha1 00:48 Acuity: CLARE 3 ha1 Triage Assessment: 01:00 General: Appears uncomfortable, Behavior is calm, cooperative. Pain: Complains of pain ha1 in epigastric area. Neuro: Level of Consciousness is awake, alert, obeys commands, Oriented to person, place, time, situation. Cardiovascular: Patient's skin is warm and dry. Respiratory: Airway is patent Respiratory effort is even, unlabored, Respiratory pattern is regular, symmetrical. GI: Abdomen is round non-distended, Reports upper abdominal pain. GI: Reports bloody stool. Derm: Skin is pink, warm \T\ dry. Historical: - Allergies: 01:00 No Known Allergies; ha1 - PMHx: 01:00 Diverticulitis; Hypertensive disorder; ha1 - Immunization history:: Adult Immunizations up to date. - Infectious Disease History:: Denies. - Social history:: Smoking status: Patient denies any tobacco usage or history of. Screenin: [facility] ED Fall Risk Assessment (Adult) History of falling in the last 3 months, cp4 including since admission No falls in past 3 months (0 pts) Confusion or Disorientation No (0 pts) Intoxicated or Sedated No (0 pts) Impaired Gait No (0 pts) Mobility Assist Device Used No (0 pt) Altered Elimination No (0 pt) Score/Fall Risk Level 0 - 2 = Low Risk Oriented to surroundings, Maintained a safe environment, Assessed \T\ reinforced patient's understanding of fall precautions, Hourly rounding (assess needs \T\ fall precautionary measures) done. Abuse screen: Denies threats or abuse. Denies injuries from another. Nutritional screening: No deficits noted. Tuberculosis screening: No symptoms or risk factors identified. Assessment: 01:25 General: Appears in no apparent distress. comfortable, Behavior is calm, cooperative, cp4 appropriate for age. Pain: Complains of pain in abdomen and epigastric area and pelvis Pain does not radiate. Pain currently is 4 out of 10 on a pain scale. Neuro: Level of Consciousness is awake, alert, obeys commands, Oriented to person, place, time, situation. Cardiovascular: Patient's skin is warm and dry. Respiratory: Airway is patent Respiratory effort is even, unlabored. GI: Abdomen is round non-distended, Bowel sounds present X 4 quads. Abd is soft and non tender X 4 quads. Reports rectal bleeding. : No signs and/or symptoms were reported regarding the genitourinary system. EENT: No signs and/or symptoms were reported regarding the EENT system. Derm: No signs and/or symptoms reported regarding the dermatologic system. Musculoskeletal: No signs and/or symptoms reported regarding the musculoskeletal system. Vital Signs: 01:27 BP 163 / 85; Pulse 89; Resp 18; Temp 97.6; Pulse Ox 100% ; Weight 65.77 kg; Height 5 cp4 ft. 3 in. ; Pain 4/10; 02:42 BP 157 / 70; Pulse 75; Resp 18; Pulse Ox 98% ; cp4 04:07 BP 147 / 75; Pulse 73; Resp 18; Pulse Ox 98% ; cp4 01:27 Body Mass Index 25.69 (65.77 kg, 160.02 cm) cp4 01:27 Pain Scale: Adult cp4 ED Course: 00:44 Patient arrived in ED. jj6 00:49 Zeeshan Jett PA is PHCP. cp 00:49 Zeeshan North MD is Attending Physician. cp 01:00 Triage completed. ha1 01:13 No provider procedures requiring assistance completed. Initial lab(s) drawn, by nh, cp4 sent to lab. Urine collected: clean catch specimen, clear. Inserted saline lock: 22 gauge in right antecubital area, using aseptic technique. Blood collected. Flushed with 10 mL NS. 01:14 Monique Bustamante is Primary Nurse. cp4 01:25 Bed in low position. Call light in reach. Side rails up X 1. cp4 02:27 CT Abd/Pelvis - IV Contrast Only In Process Unspecified. EDMS 04:44 intact, bleeding controlled, No redness/swelling at site. Pressure dressing applied. cp4 04:44 Provided Education on: diverticulitis and hypokalemia.. cp4 04:45 Arm band placed on right wrist. Patient placed in waiting room. cp4 Administered Medications: 01:14 Drug: NS 0.9% IV 1000 ml IV at 1 bolus Per protocol; to be given as a bolus over 60 cp4 minutes Route: IV; Rate: 1 bolus; Site: right antecubital; 02:35 Follow up: Response: No adverse reaction; IV Status: Completed infusion cp4 02:34 Drug: Potassium PO Effervescent Tablet 50 mEq PO once; dissolve in 4 ounces of water or cp4 juice Route: PO; 04:46 Follow up: Response: No adverse reaction cp4 02:34 Drug: Ketorolac IVP 15 mg IVP once Route: IVP; Site: right antecubital; cp4 04:46 Follow up: Response: No adverse reaction cp4 Medication: 01:25 VIS not applicable for this client. cp4 Outcome: 04:37 Discharge ordered by . cp 04:44 Discharged to home ambulatory, cp4 04:44 Condition: stable 04:44 Discharge instructions given to patient, family, Instructed on discharge instructions, follow up and referral plans. medication usage, Demonstrated understanding of instructions, follow-up care, medications, Prescriptions given X 1, 04:45 Patient left the ED. cp4 Signatures: Dispatcher [employer] EDMS Zeeshan Jett PA PA cp Jeffries, Jennifer jj6 Susana Fregoso RN RN ha1 Monique Bustamante cp4
--- NOTE | 2024-03-13 05:41 | RAD REPORT ---
EXAM: CT Abdomen and Pelvis With Intravenous Contrast CLINICAL HISTORY: The patient is 58 years old and is Female; ABD PAIN TECHNIQUE: Axial computed tomography images of the abdomen and pelvis with intravenous contrast. Sagittal and coronal reformatted images were created and reviewed. This CT exam was performed using one or more of the following dose reduction techniques: automated exposure control, adjustmen t of the mA and/or kV according to patient size, and/or use of iterative reconstruction technique. COMPARISON: No relevant prior studies available. FINDINGS: Lung bases: Unremarkable. No mass. No consolidation. ABDOMEN: Liver: Unremarkable. No mass. Gallbladder and bile ducts: Unremarkable. No calcified stones. No ductal dilation. Pancreas: Unremarkable. No mass. No ductal dilation. Spleen: Unremarkable. No splenomegaly. Adrenals: Unremarkable. No mass. Kidneys and ureters: Unremarkable. No solid mass. No hydronephrosis. Stomach and bowel: Scattered colonic diverticula. Stool throughout the colon. No obstruction. No mucosal thickening. PELVIS: Appendix: No findings to suggest acute appendicitis. Bladder: Unremarkable. Reproductive: Uterus is not seen. ABDOMEN and PELVIS: Intraperitoneal space: Unremarkable. No free air. No significant fluid collection. Bones/joints: No acute fracture. No dislocation. Soft tissues: Unremarkable. Vasculature: Unremarkable. No abdominal aortic aneurysm. Lymph nodes: Unremarkable. No enlarged lymph nodes. IMPRESSION: No acute finding in the abdomen/pelvis. Electronically signed by: Gerhard Hirsch MD 03/13/2024 05:37 AM [facility] 8 Due to temporary technical issues with the [employer] reporting system, reports are being eliazar d by the in-house radiologist without review as a courtesy to ensure prompt reporting the interpreting radiologist is fully responsible for the content of the report. Transcribed Date/Time: 03/13/2024 5:40 AM
[2024-03-13 08:42] VITALS: TEMP 97.6
[2024-03-13 08:48] VITALS: O2SAT 98
[2024-03-13 08:53] VITALS: BP 147/75
== END 2024-03-13 04:45 | disposition home or self-care (01) ==
LOC: ER 00:42
DX: R10.32 Left lower quadrant pain (principal); E87.6 Hypokalemia
CPT/HCPCS: 96361; 85025; 81001; 36415; 83690; 80053; 74177; 96374; 99284; Q9967; J7030